=== PATIENT | male | born 1940 | race Caucasian/White ===

== ENCOUNTER 2022-12-22 17:35 | Emergency (ER) | payer OTHER ==
[2022-12-22] MEDS ORDERED: traMADol HCl 50 MG TAB ONE (19:26)
== END 2022-12-22 19:40 | disposition home or self-care (01) ==
LOC: ERS 17:35
DX: S42.211A Unspecified displaced fracture of surgical neck of right humerus, initial encounter for closed fracture (principal); E11.9 Type 2 diabetes mellitus without complications; W18.30XA Fall on same level, unspecified, initial encounter; Z79.84 Long term (current) use of oral hypoglycemic drugs; Z79.899 Other long term (current) drug therapy

== ENCOUNTER 2024-05-27 12:25 | Emergency (ER) | payer OTHER | END 2024-05-27 18:36 | disposition home or self-care (01) | LOC: ERS 12:25 | DX: S93.401A Sprain of unspecified ligament of right ankle, initial encounter (principal); M79.671 Pain in right foot; M79.89 Other specified soft tissue disorders; E11.9 Type 2 diabetes mellitus without complications; X58.XXXA Exposure to other specified factors, initial encounter ==